=== PATIENT | female | born 1985 | race Hispanic/Latino ===

== ENCOUNTER 2021-06-02 17:01 | Emergency (ER) | payer BC ==
[~2021-06-02] VITALS: Ht 160 cm; Wt 63.5 kg
[2021-06-02 17:10] VITALS: BP 96/61
[2021-06-02 17:42] LABS: APPEARANCE,URINE Clear (CLEAR); BILIRUBIN,URINE Negative (NEGATIVE); COLOR,URINE Yellow (YELLOW); GLUCOSE, URINE (UA) Negative (NEGATIVE); KETONES,URINE 15 mg/dL (NEGATIVE); LEUKOCYTE ESTERASE ,URINE Negative (NEGATIVE); NITRATE,URINE Negative (NEGATIVE); OCCULT BLOOD,URINE Trace (NEGATIVE); PROTEIN,URINE Trace mg/dL (NEGATIVE)
[2021-06-02 17:48] LABS: HCG,QUAL RESULT NEGATIVE (NEGATIVE)
[2021-06-02] MEDS ORDERED: ONDANSETRON 4MG INJ IVP ONE (18:00)
[2021-06-02] MEDS ORDERED: 0.9%NACL 1000ML 1,000 ML IV ONE (18:00)
[2021-06-02] MEDS ORDERED: FAMOTIDINE 20MG VIAL IV ONE (18:00)
[2021-06-02] MEDS ORDERED: MORPHINE 4 MG SYG IVP ONE (18:00)
[2021-06-02 18:11] LABS: BACTERIA,URINE Few /HPF (None Seen); MUCUS,URINE Moderate LPF (None Seen); SQUAMOUS EPITHELIAL CELL,UR Few /HPF (0-2)
[2021-06-02 18:34] LABS: BASOPHILS % (AUTO) 0.2 % (0.0-5.0); EOSINOPHILS % (AUTO) 0.2 % (0.0-8.0); HEMATOCRIT 41.3 % (36-48); LYMPHOCYTES % (AUTO) 10.6 % (21.0-51.0); MEAN CORPUSCULAR HEMOGLOBIN 30.5 pg (27.0-33.0); MEAN CORPUSCULAR HGB CONC 32.9 g/dL (32.0-36.0); MEAN CORPUSCULAR VOLUME 92.6 fL (79-99); MONOCYTES % (AUTO) 6.6 % (3.0-13.0); PLATELET COUNT (AUTO) 174 K/uL (130-400); RED BLOOD CELL COUNT(AUTO) 4.46 MIL/uL (4.00-5.50); RED CELL DISTRIBUTION WIDTH 12.2 % (11.0-15.5); WHITE BLOOD COUNT (AUTO) 5.6 K/uL (4.8-10.8)
[2021-06-02 18:45] LABS: CARBON DIOXIDE 25 mmol/L (21-32); CHLORIDE 100 mmol/L (101-111); CREATININE 0.6 mg/dL (0.5-1.5); GLOMERULAR FILTR. RATE CALC 120 mL/min (>60); GLUCOSE,RANDOM 97 mg/dL (70-105); POTASSIUM 3.2 mmol/L (3.5-5.1); SODIUM SERUM 137 mmol/L (136-145); UREA NITROGEN, BLOOD 12 mg/dL (7-18)
[2021-06-02 18:52] LABS: ALANINE AMINOTRANSFERASE 53 U/L (12-78); ALBUMIN 3.8 g/dL (3.5-5.0); ASPARTATE AMINOTRANSFERASE 39 U/L (10-37); BILIRUBIN,TOTAL 0.7 mg/dL (0.2-1.0); TOTAL PROTEIN, SERUM 7.8 g/dL (6.0-8.3)
[2021-06-02] MEDS ORDERED: IOHEXOL-350 75 ML VIAL IV ONE (18:55)
[2021-06-02] MEDS ORDERED: FAMO-136 PO (19:02)
[2021-06-02] MEDS ORDERED: L.AC1CAP6 PO (19:02)
[2021-06-02] MEDS ORDERED: ONDA4TAB10 PO (19:02)
[2021-06-02] MEDS ORDERED: DICY20TA2 PO (19:02)
[2021-06-02 19:08] LABS: LIPASE < 50 U/L (114-286)
== END 2021-06-02 19:10 | disposition home or self-care (01) ==
LOC: EDH 17:01
DX: K52.9 Noninfective gastroenteritis and colitis, unspecified (principal); Z20.822 Contact with and (suspected) exposure to COVID-19; Z88.0 Allergy status to penicillin; Z90.49 Acquired absence of other specified parts of digestive tract
CPT/HCPCS: 36415; 80053; 81001; 81025; 83690; 85025; 87635; 87804 ×2; 96374; 96375; 99284; C9803; J2270; J2405; J3490; J7030; Q9967

== ENCOUNTER 2023-06-28 15:30 | Emergency (ER) | payer BC ==
[~2023-06-28] VITALS: Ht 157.5 cm; Wt 61.7 kg
[~2023-06-28 15:30] MED LIST: DICY20TA2 PO; FAMO-136 PO; HYD25 PO; L.AC1CAP6 PO; LORA10TA7 PO; METH4TAB3 PO; ONDA4TAB10 PO
[2023-06-28] MEDS: PHARMACY COMMUNICATION MISC SCH (16:00)
[2023-06-28 16:10] LABS: HEMATOCRIT 36.2 % (36-48); MEAN CORPUSCULAR HEMOGLOBIN 29.4 pg (27.0-33.0); MEAN CORPUSCULAR HGB CONC 32.3 g/dL (32.0-36.0); PLATELET COUNT (AUTO) 325 K/uL (130-400); RED BLOOD CELL COUNT(AUTO) 3.98 MIL/uL (4.00-5.50); RED CELL DISTRIBUTION WIDTH 13.9 % (11.0-15.5); WHITE BLOOD COUNT (AUTO) 9.4 K/uL (4.8-10.8)
[2023-06-28 16:20] LABS: CREATININE 0.6 mg/dL (0.5-1.0); POTASSIUM 3.6 mmol/L (3.5-5.1)
[2023-06-28 16:24] LABS: ALBUMIN 2.8 g/dL (3.5-5.0); BILIRUBIN,TOTAL 0.7 mg/dL (0.2-1.0); TOTAL PROTEIN, SERUM 6.7 g/dL (6.0-8.3)
[2023-06-28] MEDS: LIDO 2% VISC 30ML+MAG/AL/SIMETH 30ML+DICYCLOMINE 20MG 10ML PO ONE (16:24)
[2023-06-28] MEDS ORDERED: LIDO 2% VISC 30ML+MAG/AL/SIMETH 30ML+DICYCLOMINE 20MG 10ML PO PRN (16:30)
[2023-06-28] MEDS ORDERED: COMPOUND PO MISCELLANEOUS 1 EACH MISC MISC PRN (16:30)
[2023-06-28 16:50] LABS: BAND NEUTROPHILS % (MANUAL) 2 % (0-2); EOSINOPHILS % (MANUAL) 2 % (1-6); LYMPHOCYTES % (MANUAL) 16 % (22-44); MAN.DIFF COMMENT-IMPRESSION MANUAL DIFFERENTIAL; MONOCYTES % (MANUAL) 3 % (2-9); PLATELET MORPHOLOGY COMMENT ADEQUATE; SEGMENTED NEUTROPHILS % 77 % (40-70); TOTAL CELLS COUNTED 100; WBC MORPHOLOGY CONSISTENT W/DIFF
[2023-06-28] MEDS: MORPHINE 4 MG SYG IVP ONE (17:18)
[2023-06-28] MEDS: ONDANSETRON 4MG INJ IVP ONE (17:27)
[2023-06-28 18:11] LABS: BILIRUBIN,URINE NEGATIVE (NEGATIVE); GLUCOSE, URINE (UA) NEGATIVE (NEGATIVE); KETONES,URINE NEGATIVE (NEGATIVE); LEUKOCYTE ESTERASE ,URINE 500 Leu/uL (NEGATIVE); NITRATE,URINE NEGATIVE (NEGATIVE); OCCULT BLOOD,URINE LARGE (NEGATIVE); PH,URINE 7.5 (5.0-8.0); PROTEIN,URINE 50 mg/dL (NEGATIVE); UROBILINOGEN,URINE 0.2 mg/dL (0.2-1.0)
[2023-06-28] MEDS ORDERED: IOHEXOL 350 MG/ML 100ML INFUS..BTL IV ONE (18:11)
[2023-06-28 18:12] LABS: ADD UA MICROSCOPIC YES; APPEARANCE,URINE HAZY (CLEAR); COLOR,URINE RED (YELLOW)
[2023-06-28 18:15] LABS: BACTERIA,URINE FEW /HPF (None Seen); MUCUS,URINE RARE LPF (None Seen); RBC,URINE TNTC /HPF (0-1); SQUAMOUS EPITHELIAL CELL,UR FEW /HPF (0-2); WBC,URINE 51-100 /HPF (0-1)
[2023-06-28 19:13] VITALS: BP 116/59; PULSE 64; RESP 18; O2SAT 96
[2023-06-28] MEDS ORDERED: SULF1TAB42 PO (19:54)
[2023-06-28] MEDS ORDERED: PANT20TA PO (19:55)
[2023-06-28] MEDS: SULFAMETHOX-TMP DS 800/160 TAB PO STA (20:31)
[2023-06-28] MEDS: KETOROLAC 15MG/ML VIAL (15MG/ML) IV ONE (20:53)
[2023-06-28] MEDS: KETOROLAC 15MG/ML VIAL (15MG/ML) ONE (20:53)
== END 2023-06-28 22:11 | disposition home or self-care (01) ==
LOC: EDH 15:30
DX: Z79.899 Other long term (current) drug therapy (principal); Z90.49 Acquired absence of other specified parts of digestive tract; Z98.890 Other specified postprocedural states; Z88.0 Allergy status to penicillin
CPT/HCPCS: 99284; 74177; 96374; 96375; 80053; 83690; 85025; 87088; 81001; 36415; J2405; J2270; J1885; Q9967